=== PATIENT | male | born 1990 | race Caucasian/White ===

== ENCOUNTER 2018-10-11 16:50 | Observation (INO) ==
[2018-10-11] MEDS ORDERED: SODIUM CHLORIDE 0.9% 1000ML 1,000 ML IV ONE (17:16)
[2018-10-11] MEDS ORDERED: ONDANSETRON INJ 2 MG/ML 2 ML VIAL IV STA (17:16)
[2018-10-11] MEDS ORDERED: ACETAMINOPHEN 1,000 MG/100 ML VIAL IV STA (17:16)
[2018-10-11 18:21] LABS: Basophils # (auto) 0.02 K/uL (0-0.2); Basophils % (auto) 0.2 %; Eosinophils # (auto) 0.08 K/uL (0-0.5); Eosinophils % (auto) 0.9 %; Hematocrit (blood only) 43.4 % (42-52); Hemoglobin 15.8 g/dL (14.0-18.0); Immature Granulocytes # (auto) 0.01 K/uL (0.00-0.02); Immature Granulocytes % (auto) 0.1 %; Lymphocytes # (auto) 1.12 K/uL (1.2-3.4); Lymphocytes % (auto) 13.1 %; Mean Corpuscular Hemoglobin 29.6 pg (25-34); Mean Corpuscular Hgb Conc 36.4 g/dL (32-36); Mean Corpuscular Volume 81.3 fL (80-100); Mean Platelet Volume 9.4 fL (7.4-10.4); Monocytes # (auto) 0.49 K/uL (0.11-0.59); Monocytes % (auto) 5.7 %; Neutrophils # (auto) 6.85 K/uL (1.4-6.5); Platelet Count 191 K/uL (130-400); RDW Coefficient of Variation 12.6 % (11.5-14.5); RDW Standard Deviation 37.3 fL (36.4-46.3); Red Blood Count 5.34 M/uL (4.7-6.1); White Blood Count 8.57 K/uL (4.8-10.8)
[2018-10-11 18:38] LABS: Albumin Level 4.5 gm/dl (3.4-5.0); BUN Creatinine Ratio 8.1 (10-20); Calcium 9.7 mg/dl (8.5-10.1); Creatinine Clr Calc Pharmacy 94.5 ml/min; Est GFR (African American) 108.4; Est GFR (Non-African American) 93.6; Potassium 3.7 mmol/L (3.5-5.1)
[2018-10-11 18:41] LABS: Albumin Globulin Ratio 1.2 (0.9-2); Bilirubin,Total 0.7 mg/dl (0.2-1); Globulin 3.6 gm/dl (2.5-4.0); Total Protein 8.1 gm/dl (6.4-8.2)
[2018-10-11] MEDS ORDERED: IOVERSOL 100ml IV PRN (19:56)
[2018-10-11] MEDS ORDERED: cefOXitin 2,000 MG/60 ML BAG IV STA (20:08)
--- NOTE | 2018-10-11 20:08 | CT Scan Report ---
CT OF THE ABDOMEN AND PELVIS WITH CONTRAST CLINICAL HISTORY: RLQ pain, nausea COMPARISON STUDY: None. TECHNIQUE: Following IV administration of 94 mL of Optiray-320, axial images of the abdomen and pelvi s were obtained from the lung bases to the proximal femurs. Images were reviewed in the axial, sagitt al, and coronal planes. IV contrast was administered without complication. Automated exposure contro l was utilized for the study. A dose lowering technique was utilized adhering to the principles of A JOE. CT DOSE: 283.58 mGy.cm FINDINGS: Lung bases are clear. The liver, spleen, adrenal glands, kidneys and pancreas are normal. S ize of the spleen is at the upper limits of normal. There is no hydronephrosis. No biliary or pancrea tic ductal dilatation is noted. There is no peripancreatic or pericholecystic infiltration. No pneuma tosis, free air or portal venous gas is present. There is no evidence for a bowel obstruction. Note i s made of a 3 mm appendicolith within the mid appendix. The mid to distal appendix is slightly dilate d, measuring 8 mm in caliber. This portion of the appendix is fluid-filled. There is no significant p eriappendiceal infiltration. No free air or abscess is present. No lymphadenopathy is present. There are no suspicious osseous lesions. IMPRESSION: Mildly dilated fluid-filled appendix which contains a small appendicolith. No periappend iceal infiltration or abscess. These findings favor early acute appendicitis. Electronically signed by: Pranav Medina M.D. 10/11/2018 8:06 PM
[2018-10-11] MEDS ORDERED: SODIUM CHLORIDE 0.9% 1000ML 1,000 ML IV STA (20:13)
--- NOTE | 2018-10-11 20:30 | Emergency Department Note ---
Entered by Rebekah Mario acting as a scribe for Howie Escamilla MD History of Present Illness General Chief complaint: Illness Stated complaint: appendicitis Time Seen by Provider: 10/11/18 17:12 Source: patient History of Present Illness Onset (ago): day(s) 2 Location: abdomen (RLQ) Pain Consistency: + constant Maximum Pain Intensity: 3 Relieved By: + none Associated symptoms: + denies other symptoms (urinary symptoms, congestion) and + nausea/vomiting (yes nausea, no vomiting); no cough The patient is a 28 year old M who presents to the Emergency Room with complaints of constant RLQ abdominal pain that started 2 days ago. He notes that he was referred to the ED by [facility]. He states that he is currently experiencing nausea. He denies that he is currently experiencing urinary symptoms, vomiting, coughing, and congestion. He notes that he has been having regular bowel movements. 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 He adds that he is from [facility]. Home Medications Home Medications Medication Instructions Recorded Confirmed Type No Known Home Medications 10/11/18 10/11/18 History Allergies Allergy/AdvReac Type Severity Reaction Status Date / Time No Known Allergies Allergy Unverified 10/11/18 18:57 Past Med/Surg History Medical History No pertinent past medical history Surgical History No significant past surgical history Family History Other No significant family history Social History Feels Safe at Home: Yes Smoking Status: Never smoker Do You Dip or Chew Tobacco: No ; Hx Alcohol Use: Yes Hx Substance Use: No Review of Systems See HPI for pertinent positives & negatives. and A total of 10 systems reviewed and were otherwise negative Physical Exam Vital Signs Vital Signs - 24 hr 10/11/18 16:57 10/11/18 18:22 10/11/18 20:00 Temperature 37.1 C Temperature Source Oral Sepsis Recent Fever Within 48 Hours No Sepsis Action Taken by Nursing No Action Required Pulse Rate 88 Pulse Rate [Apical] Pulse Rate [Finger] 81 90 Pulse Rhythm [Apical] Respiratory Rate 16 16 12 Respiratory Effort / Characteristics Non-Labored Spontaneous Non-Labored Non-Labored Respiratory Depth Normal Normal Normal Respiratory Pattern Regular Regular Blood Pressure 144/86 H Blood Pressure [Left Arm] 128/71 139/85 Blood Pressure Mean 105 Blood Pressure Mean [Left Arm] 90 103 Blood Pressure Position Sitting Blood Pressure Position [Left Arm] Sitting Lying Pulse Oximetry 98 100 100 Oxygen Delivery Method Room Air Room Air Room Air Oxygen Flow Rate 10/11/18 20:57 10/11/18 22:00 10/11/18 23:31 Temperature 36.0 C L Temperature Source Temporal Artery Scan Sepsis Recent Fever Within 48 Hours Sepsis Action Taken by Nursing Pulse Rate 68 Pulse Rate [Apical] 118 H Pulse Rate [Finger] 65 Pulse Rhythm [Apical] Regular Respiratory Rate 18 20 18 Respiratory Effort / Characteristics Non-Labored Spontaneous Respiratory Depth Normal Respiratory Pattern Regular Blood Pressure Blood Pressure [Left Arm] 145/81 H 140/82 Blood Pressure Mean Blood Pressure Mean [Left Arm] 102 101 Blood Pressure Position Blood Pressure Position [Left Arm] Semi-fowlers Pulse Oximetry 98 99 100 Oxygen Delivery Method Room Air Room Air Oxymask Oxygen Flow Rate 10 10/11/18 23:40 10/11/18 23:50 Temperature Temperature Source Sepsis Recent Fever Within 48 Hours Sepsis Action Taken by Nursing Pulse Rate Pulse Rate [Apical] 83 61 Pulse Rate [Finger] Pulse Rhythm [Apical] Regular Regular Respiratory Rate 18 18 Respiratory Effort / Characteristics Non-Labored Spontaneous Non-Labored Spontaneous Respiratory Depth Normal Normal Respiratory Pattern Regular Regular Blood Pressure Blood Pressure [Left Arm] 125/79 128/73 Blood Pressure Mean Blood Pressure Mean [Left Arm] 94 91 Blood Pressure Position Blood Pressure Position [Left Arm] Semi-fowlers Semi-fowlers Pulse Oximetry 100 100 Oxygen Delivery Method Oxymask Oxymask Oxygen Flow Rate 5 3 GENERAL: Awake, alert, uncomfortable-appearing, in no distress HENT: Normocephalic, atraumatic. Oropharynx with dry mucous membranes and otherwise unremarkable. EYES: Normal conjunctiva. Sclera non-icteric. NECK: Supple. No nuchal rigidity. FROM. No JVD. RESPIRATORY: CTAB CARDIAC: RRR ABDOMEN: Soft, non-distended. Mild point tenderness to palpation over RLQ/Mcburney's point. No rebound or guarding. No masses. RECTAL: Deferred. MUSCULOSKELETAL: Chest examination reveals no tenderness. The back is symmetrical on inspection without obvious abnormality. There is no CVA tenderness to palpation. No joint edema. LOWER EXTREMITIES: Calves are equal size bilaterally and non-tender. No edema. No discoloration. NEURO: Normal sensorium. No sensory or motor deficits noted. SKIN: No rash or jaundice noted. Course 1713: The patient was evaluated in room C2A. A complete history and physical exam was performed. 2013: I reviewed the patient's case with Dr. Alejandre, [facility] [place]. He states that he will come in and evaluate the patient for likely surgery. Consultations Consultation #1: I reviewed the patient's case with Dr. Alejandre, [facility] [place]. He states that he will come in and evaluate the patient for likely surgery. Time: 20:13 Administered Medications Sodium Chloride (Nss 1000ml) 1,000 mls @ 125 mls/hr IV .Q8H STA Stop: 10/12/18 04:12 Last Admin: 10/11/18 20:53 Dose: 125 mls/hr Documented by: [id number] Ioversol (Optiray 320 100ml) 94 ml IV ONCE PRN PRN Reason: Interaction Checking Stop: 10/15/18 19:55 Last Admin: 10/11/18 19:56 Dose: 94 ml Documented by: [id number] Discontinued Medications Bupivacaine HCl/Epinephrine Bitart (Sensorcaine/Epinephrine 0.5% Mpf 1:200,000) Confirm Administered Dose 30 ml .ROUTE .STK-MED ONE Stop: 10/11/18 22:07 Last Admin: 10/11/18 22:58 Dose: 20 ml Documented by: [id number] Acetaminophen (Ofirmev) 1,000 mg in 100 mls @ 400 mls/hr IV NOW STA Stop: 10/11/18 17:30 Last Infusion: 10/11/18 18:31 Dose: 0 mls/hr Documented by: [id number] Admin: 10/11/18 18:16 Dose: 400 mls/hr Documented by: [id number] Sodium Chloride (Nss 1000ml) 1,000 mls @ 999 mls/hr IV .Q1H1M ONE Stop: 10/11/18 18:16 Last Infusion: 10/11/18 19:08 Dose: 0 mls/hr Documented by: [id number] Admin: 10/11/18 18:16 Dose: 999 mls/hr Documented by: [id number] Cefoxitin Sodium (Mefoxin) 2,000 mg in 60 mls @ 100 mls/hr IV NOW STA Stop: 10/11/18 20:43 Last Infusion: 10/11/18 21:30 Dose: 0 mls/hr Documented by: [id number] Admin: 10/11/18 20:53 Dose: 100 mls/hr Documented by: [id number] Ondansetron HCl (Zofran) 4 mg IV NOW STA Stop: 10/11/18 17:17 Last Admin: 10/11/18 18:16 Dose: 4 mg Documented by: [id number] Medical Decision Making Differential Diagnosis Differential diagnoses includes but is not limited to gastritis, peptic ulcer disease, GERD, gallbladder disease, pancreatitis, small bowel obstruction, acute coronary syndrome, pericarditis, ischemic bowel, irritable bowel disease, irritable bowel syndrome, appendicitis, diverticulitis, malignancy, hernia, urinary tract infection, torsion, perforation, trauma, infectious. Medical Records Attestation: I reviewed the patient's medical records. Home Medications Current Medication List: was personally reviewed by me Laboratory Data Attestation: I reviewed the patient's lab results. Result diagrams: 10/11/18 18:04 10/11/18 18:04 Lab Results 10/11/18 10/11/18 Range/Units 18:04 18:04 WBC 8.57 (4.8-10.8) K/uL RBC 5.34 (4.7-6.1) M/uL Hgb 15.8 (14.0-18.0) g/dL Hct 43.4 (42-52) % MCV 81.3 (80-100) fL MCH 29.6 (25-34) pg MCHC 36.4 H (32-36) g/dL RDW Std Deviation 37.3 (36.4-46.3) fL RDW Coeff of Darion 12.6 (11.5-14.5) % Plt Count 191 (130-400) K/uL MPV 9.4 (7.4-10.4) fL Immature Gran % (Auto) 0.1 % Neut % (Auto) 80.0 % Lymph % (Auto) 13.1 % [place] % (Auto) 5.7 % Eos % (Auto) 0.9 % Baso % (Auto) 0.2 % Immature Gran # (Auto) 0.01 (0.00-0.02) K/uL Neut # (Auto) 6.85 H (1.4-6.5) K/uL Lymph # (Auto) 1.12 L (1.2-3.4) K/uL [place] # (Auto) 0.49 (0.11-0.59) K/uL Eos # (Auto) 0.08 (0-0.5) K/uL Baso # (Auto) 0.02 (0-0.2) K/uL Sodium 139 (136-145) mmol/L Potassium 3.7 (3.5-5.1) mmol/L Chloride 104 (98-107) mmol/L Carbon Dioxide 31 (21-32) mmol/L Anion Gap 5.0 (3-11) BUN 9 (7-18) mg/dl Creatinine 1.08 (0.6-1.4) mg/dl Est Cr Clr Drug Dosing 94.5 ml/min Est GFR ( Amer) 108.4 Est GFR (Non-Af Amer) 93.6 BUN/Creatinine Ratio 8.1 L (10-20) Glucose 88 (70-99) mg/dl Calcium 9.7 (8.5-10.1) mg/dl Total Bilirubin 0.7 (0.2-1) mg/dl AST 22 (15-37) U/L ALT 26 (12-78) U/L Alkaline Phosphatase 79 (45-117) U/L Total Protein 8.1 (6.4-8.2) gm/dl Albumin 4.5 (3.4-5.0) gm/dl Globulin 3.6 (2.5-4.0) gm/dl Albumin/Globulin Ratio 1.2 (0.9-2) Lipase 158 (73-393) U/L Imaging Data Radiologist's Impression: Radiology results as stated below per my review and the radiologist's interpretation: CT OF THE ABDOMEN AND PELVIS WITH CONTRAST CLINICAL HISTORY: RLQ pain, nausea COMPARISON STUDY: None. TECHNIQUE: Following IV administration of 94 mL of Optiray-320, axial images of the abdomen and pelvis were obtained from the lung bases to the proximal femurs. Images were reviewed in the axial, sagittal, and coronal planes. IV contrast was administered without complication. Automated exposure control was utilized for the study. A dose lowering technique was utilized adhering to the principles of ALARA. CT DOSE: 283.58 mGy.cm FINDINGS: Lung bases are clear. The liver, spleen, adrenal glands, kidneys and pancreas are normal. Size of the spleen is at the upper limits of normal. There is no hydronephrosis. No biliary or pancreatic ductal dilatation is noted. There is no peripancreatic or pericholecystic infiltration. No pneumatosis, free air or portal venous gas is present. There is no evidence for a bowel obstruction. Note is made of a 3 mm appendicolith within the mid appendix. The mid to distal appendix is slightly dilated, measuring 8 mm in caliber. This portion of the appendix is fluid-filled. There is no significant periappendiceal infiltration. No free air or abscess is present. No lymphadenopathy is present. There are no suspicious osseous lesions. IMPRESSION: Mildly dilated fluid-filled appendix which contains a small appendicolith. No periappendiceal infiltration or abscess. These findings favor early acute appendicitis. Electronically signed by: Parnav Medina M.D. 10/11/2018 8:06 PM Blood Pressure Blood Pressure Findings: Normal blood pressure Blood Pressure Disposition: did not require urgent referral MDM Narrative The patient is a pleasant 28-year-old gentleman previously healthy, from [place], who is here as a freshman student at [employer] who presents emergency department with right lower quadrant pain with nausea and decreased appetite that began yesterday seen at [facility] and referred to the ED for possible appendicitis per hpi. On arrival the patient is in no acute distress, afebrile stable vital signs. On exam the patient exhibits point tenderness over McBurney's point without guarding or rebound. WBC, H/H, platelets wnl. Chemistry without acidosis. LFTs and electrolytes unremarkable. UA negative. CT abdomen pelvis however demonstrates findings consistent with likely early appendicitis with 3 mm appendicolith within the mid appendix, with mid to distal appendix sl ightly dilated, measuring 8 mm in caliber and is fluid-filled. There is no periappendiceal infiltration at this time. The patient was reevaluated and continues to have point tenderness over McBurney's point. He remains hemodynamically stable. Patient was ordered for cefoxitin. Case was discussed with general surgery, Dr. Alejandre, who evaluate the patient for likely admission to OR. Patient updated on plan and agreeable. Impression & Plan Appendicitis, Abdominal pain Discharge Plan Visit Data *Final* Discharge Date/Time: 10/11/18 22:00 Chief Complaint: Illness Stated Complaint: appendicitis ED Provider: Howie Escamilla Discharge Problem: Appendicitis, Abdominal pain Patient Disposition: Still a Patient Discharge Instructions Interventions: ED Discharge Assessment Last Done: 10/11/18 22:00 Discharge Problem: Appendicitis Qualifiers: Appendicitis type: unspecified Qualified Code(s): K37 - Unspecified appen dicitis Abdominal pain Qualifiers: Abdominal location: right lower quadrant Qualified Code(s): R10.31 - Right l ower quadrant pain The scribe's documentation has been prepared under my direction and personally reviewed by me in its entirety. I confirm that the note above accurately reflects all work, treatment, procedures, and medical decision making performed by me.
--- NOTE | 2018-10-11 21:31 | History & Physical Report ---
Date of Service October 11, 2018 Assessment & Plan (1) Appendicitis: IVF IV abx to OR for lap appendectomy Appendicitis type: unspecified Qualified Code(s): K37 - Unspecified appendicitis Present on Admission?: Yes History of Present Illness Primary Care Provider: [facility] This is a 28 year old male who presents to the Emergency Room with complaints of constant RLQ abdominal pain that started 2 days ago. He states that he has nausea without vomiting. He denies urinary symptoms, fevers, or chills. A CT scan shows early acute appendicitis with an fecalith. Allergies Allergy/AdvReac Type Severity Reaction Status Date / Time No Known Allergies Allergy Unverified 10/11/18 18:57 Home Medications Home Medications Medication Instructions Recorded Confirmed Type No Known Home Medications 10/11/18 10/11/18 History Past Med/Surg History Medical History No pertinent past medical history Family History Other No significant family history Social History Feels Safe at Home: Yes Smoking Status: Never smoker Review of Systems + anorexia; no fever and no chills no problem reported no problem reported no cough, no chest congestion and no dyspnea no chest pain and no dyspnea + abdominal pain and + nausea; no vomiting and no change in bowel habits no dysuria no back pain, no neck pain and no joint pain no rash no problem reported no depression no fatigue no problem reported no problem reported Physical Exam Constitutional: well developed and well nourished Eyes: PERRL; no scleral abnormality ENMT: external ear and nose normal, oropharynx normal Neck: trachea midline, no thyromegaly neck nontender Thyroid: + thyroid tender Respiratory: normal respiratory effort, lungs clear to auscultation Cardiovascular: RRR, no murmur, no edema Gastrointestinal (Abdomen): Inspection/Auscultation: abdomen normal to inspection and normal bowel sounds; abdomen not distended Percussion/Palpation: + abdomen tender, + guarding and abdomen soft Musculoskeletal: Head/Neck/Chest: normocephalic and head atraumatic Skin: no rashes, warm and dry Psychiatric: A+Ox3, euthymic affect Lymphatic: no lymphadenopathy ASA Classification ASA ASA1E Results & Data Vital Signs (Past 12 Hours) Vital Signs Temp Pulse Pulse Resp BP BP Pulse Ox 10/11/18 20:57 65 18 145/81 H 98 10/11/18 20:00 90 12 139/85 100 10/11/18 18:22 81 16 128/71 100 10/11/18 16:57 37.1 C 88 16 144/[address] OF THE ABDOMEN AND PELVIS WITH CONTRAST CLINICAL HISTORY: RLQ pain, nausea COMPARISON STUDY: None. TECHNIQUE: Following IV administration of 94 mL of Optiray-320, axial images of the abdomen and pelvis were obtained from the lung bases to the proximal femurs. Images were reviewed in the axial, sagittal, and coronal planes. IV contrast was administered without complication. Automated exposure control was utilized for the study. A dose lowering technique was utilized adhering to the principles of ALARA. CT DOSE: 283.58 mGy.cm FINDINGS: Lung bases are clear. The liver, spleen, adrenal glands, kidneys and pancreas are normal. Size of the spleen is at the upper limits of normal. There is no hydronephrosis. No biliary or pancreatic ductal dilatation is noted. There is no peripancreatic or pericholecystic infiltration. No pneumatosis, free air or portal venous gas is present. There is no evidence for a bowel obstruction. Note is made of a 3 mm appendicolith within the mid appendix. The mid to distal appendix is slightly dilated, measuring 8 mm in caliber. This portion of the appendix is fluid-filled. There is no significant periappendiceal infiltration. No free air or abscess is present. No lymphadenopathy is present. There are no suspicious osseous lesions. IMPRESSION: Mildly dilated fluid-filled appendix which contains a small appendicolith. No periappendiceal infiltration or abscess. These findings favor early acute appendicitis.
[2018-10-11] MEDS ORDERED: cefOXitin 1,000 MG/50 ML BAG IV ONE (21:33)
[2018-10-11] MEDS ORDERED: ONDANSETRON INJ 2 MG/ML 2 ML VIAL ONE (22:00)
[2018-10-11] MEDS ORDERED: PROPOFOL IV EMULSION 10 MG/ML 20 ML VIAL IV ONE (22:00)
[2018-10-11] MEDS ORDERED: ROCURONIUM BROMIDE 10 MG/ML 5 ML VIAL ONE (22:00)
[2018-10-11] MEDS ORDERED: DEXAMETHASONE SOD INJ 4 MG/ML VIAL ONE (22:00)
[2018-10-11] MEDS ORDERED: fentaNYL citrate 100 MCG/2 ML VIAL ONE ×2 (22:00→22:44)
[2018-10-11] MEDS ORDERED: LIDOCAINE HCL 2% 2 ML VIAL/AMP(20MG/ML) INFIL ONE (22:00)
[2018-10-11] MEDS ORDERED: SUCCINYLCHOLINE CHLORIDE 20 MG/ML 10 ML VIAL ONE (22:00)
[2018-10-11] MEDS ORDERED: MIDAZOLAM HCL 1 MG/ML 2ML VIAL ONE (22:00)
[2018-10-11] MEDS ORDERED: BUPIVACAINE/EPINEPHRINE 0.5% MPF 1:200,000 30 ML VIAL ONE (22:06)
--- NOTE | 2018-10-11 22:21 | Anesthesiology Consultation ---
Date of Service October 11, 2018 Assessment & Plan (1) Encounter for pre-operative examination: Chart Review Chart Review: Acceptable Risk for Surgery and Patient NOT seen in Pre Admission Testing Consults Requested none ASA ASA2E Proposed Anesthesia Anesthesia Type: General Risk / Benefits Reviewed With: PT / POA / Parent / Guardian, Accepts Plan and Informed Consent Obtained History Surgery Operation Date: 10/11/18 23:00 Proposed Procedures p Laparoscopic Appendectomy(Not Applicable) - Tomy Alejandre MD Height/Weight Height: 5 ft 7 in Weight: 65 kg Allergies Allergy/AdvReac Type Severity Reaction Status Date / Time No Known Allergies Allergy Unverified 10/11/18 18:57 Medications Home Medications Medication Instructions Recorded Confirmed Last Taken No Known Home Medications 10/11/18 10/11/18 Unknown Active Medications Generic Name Dose Route Start Last Admin Trade Name Freq PRN Reason Stop Dose Admin Sodium Chloride 1,000 mls @ 125 mls/hr 10/11/18 20:13 10/11/18 20:53 Nss 1000ml IV 10/12/18 04:12 125 mls/hr .Q8H STA Administration Ioversol 94 ml 10/11/18 19:56 10/11/18 19:56 Optiray 320 100ml IV 10/15/18 19:55 94 ml ONCE PRN Administration Interaction Checking NPO Date Last Intake of Fluids: 10/11/18 Time Last Intake of Fluids: 14:00 Date Last Intake of Solids: 10/11/18 Time Last Intake of Solids: 14:00 Past Medical History Medical History No pertinent past medical history Exercise / Class Metabolic Activity II 4-5 Yardwork/Stairs/Walk up hill Past Family History Family History Other No significant family history Past Surgical History Surgical History No significant past surgical history Past Anesthesia History No Family Hx of Anesthesia Complications History of PONV No Hx of Motion Sickness Social History Smoking Status: Never smoker Do You Dip or Chew Tobacco: No Hx Alcohol Use: Yes alcohol intake frequency: a few times a week Hx Substance Use: No Review of Systems Positive for nausea today - no vomiting Patient denies active symptoms of GERD. Negative for chest pain or shortness of breath. Physical Exam Vital Signs Last Vital Signs Temp 37.1 C 10/11/18 16:57 Pulse 65 10/11/18 20:57 Resp 18 10/11/18 20:57 BP 145/81 H 10/11/18 20:57 Pulse Ox 98 10/11/18 20:57 Constitutional not obese ENMT Mouth: no TMJ abnormality and oral opening not small Thyromental Distance: > or= 3.5 Finger Breadths Mallampati Class: II Neck normal visual inspection and + facial hair; neck extension not limited Respiratory normal respiratory effort Auscultation: lungs clear to auscultation bilaterally Cardiovascular Rate/Rhythm: regular rate and regular rhythm Heart Sounds: no murmur Neurologic moves all extremities Psychiatric Orientation: alert and oriented x 3 Testing Laboratory Results 10/11/18 18:04 10/11/18 18:04
[2018-10-11] MEDS ORDERED: GLYCOPYRROLATE 0.2 MG/ML VIAL ONE (22:57)
[2018-10-11] MEDS ORDERED: NEOSTIGMINE METHYLSULFATE 5 MG/5 ML SYR ONE (22:58)
--- NOTE | 2018-10-11 23:02 | Post Operative Brief Note ---
Immediate Post Op Note v1 Date of Surgery October 11, 2018 Pre & Post Diagnosis Operation Date: 10/11/18 23:00 Pre-Op Diagnosis: Acute appendicitis Post-Op Diagnosis: Acute appendicitis Procedure Operation Date: 10/11/18 23:00 Actual Procedures p Laparoscopic Appendectomy(Not Applicable) - Tomy Alejandre MD Surgeon Tomy Alejandre MD Drug Regulatory Affairs Specialist none Estimated Blood Loss 2 Findings Consistent with Post-Op Diagnosis
[2018-10-11] MEDS ORDERED: MoRPHine SULFATE 4 MG/ML 1 ML CARP\\VIAL IV PRN (23:06)
[2018-10-11] MEDS ORDERED: IBUPROFEN 200 MG TAB PO PRN (23:06)
[2018-10-11] MEDS ORDERED: ACETAMINOPHEN 325 MG TAB PO PRN (23:06)
[2018-10-11] MEDS ORDERED: MoRPHine SULFATE 10 MG/ML CARP/VIAL IV PRN (23:06)
[2018-10-11] MEDS ORDERED: ONDANSETRON INJ 2 MG/ML 2 ML VIAL IV PRN ×2 (23:06→23:49)
[2018-10-11] MEDS ORDERED: PROMETHAZINE HCL 25 MG in SODIUM CHLORIDE 0.9% 50 ML IV PRN (23:06)
[2018-10-11] MEDS ORDERED: OXYCODONE/ACETAMINOPHEN 5mg/325mg TAB PO PRN ×2 (23:06)
[2018-10-11] MEDS ORDERED: MoRPHine SULFATE 2 MG/ML CARP IV PRN (23:06)
[2018-10-11] MEDS ORDERED: SUGAMMADEX SODIUM 200 MG/2 ML VIAL IV ONE (23:07)
[2018-10-11] MEDS ORDERED: fentaNYL citrate 100 MCG/2 ML VIAL IV PRN (23:49)
[2018-10-11] MEDS ORDERED: ePHEDrine sulfate 50 MG/ML AMP IV PRN (23:49)
[2018-10-11] MEDS ORDERED: PROMETHAZINE HCL 12.5 MG in SODIUM CHLORIDE 0.9% 50 ML IV PRN (23:49)
[2018-10-11] MEDS ORDERED: HYDROmorphone INJ 1 MG/ML SYRINGE IV PRN (23:49)
[2018-10-11] MEDS ORDERED: ATROPINE SULFATE 0.1 MG/ML 10ML SYR IV PRN (23:49)
--- NOTE | 2018-10-12 00:14 | Anesthesiology Progress Note ---
Date of Service October 12, 2018 Anesthesia Post Procedure Vital Signs Vital Signs: Temp Pulse Pulse Pulse Resp BP BP 10/12/18 00:00 36.4 C L 61 18 118/68 10/11/18 23:50 61 18 128/73 10/11/18 23:40 83 18 125/79 10/11/18 23:31 36.0 C L 118 H 18 140/82 10/11/18 22:00 68 20 10/11/18 20:57 65 18 145/81 H 10/11/18 20:00 90 12 139/85 10/11/18 18:22 81 16 128/71 10/11/18 16:57 37.1 C 88 16 144/86 H Pulse Ox 10/12/18 00:00 100 10/11/18 23:50 100 10/11/18 23:40 100 10/11/18 23:31 100 10/11/18 22:00 99 10/11/18 20:57 98 10/11/18 20:00 100 10/11/18 18:22 100 10/11/18 16:57 98 Pain Intensity Right Lower Abdomen: Pain Intensity: 5 Transfer of Care Handoff Completed per policy Notes Mental Status: alert / awake / arousable and participated in evaluation Patient Amnestic to Procedure: Yes Nausea / Vomiting: adequately controlled Pain: adequately controlled Airway Patency, RR, SpO2: stable & adequate BP & HR: stable & adequate Hydration State: stable & adequate Anesthetic Complications: no major complications apparent and Pt Satisfied with anesthetic care
--- NOTE | 2018-10-12 00:21 | Operative Report ---
DATE OF OPERATION: 10/11/2018 PREOPERATIVE DIAGNOSIS: Acute appendicitis. POSTOPERATIVE DIAGNOSIS: Acute appendicitis. PROCEDURE PERFORMED: Laparoscopic appendectomy. SURGEON: Tomy Alejandre MD THERMOMETER PRODUCTION WORKER: None. ANESTHESIA: General endotracheal with 0.5% Marcaine with epinephrine local. ESTIMATED BLOOD LOSS: 2 mL. DRAINS: None. SPECIMENS: Appendix sent to pathology. FINDINGS: Acutely inflamed early appendicitis. INDICATION FOR PROCEDURE: This is a 28-year-old male who came in with a day plus history of some abdominal pain. He had evaluation as an outpatient, was sent to the Emergency Department where they ordered a CT scan which showed some early appendiceal changes and dilatation along with a fecalith. He had peritoneal signs on examination. We will plan to take him to the Operating Room for laparoscopic appendectomy. He understands the risk of an open procedure, abscess, reoperation, bleeding and wound problems. DESCRIPTION OF PROCEDURE: The patient was taken to the Operating Room and underwent excellent general endotracheal anesthesia. His abdomen was prepped and draped in normal sterile fashion. A transverse supraumbilical incision was made and a Veress needle was inserted with upward tension on the abdominal wall. Good pneumoperitoneum was achieved to 15 mmHg. A visualized 11 trocar was then placed. A 12 was placed in the left lower quadrant and 5 was placed in the suprapubic and right upper quadrant. He was placed in head down and rolled to the left. Brandi was used to grasp the cecum and the tip of the appendix was grasped with a grasper. This displayed the appendix, which showed some acute inflammatory changes distally with a fairly normal proximal appendix. Harmonic scalpel was used to take down the mesoappendix to the base. The base was then transected with a MAT-45 vascular load stapler. The appendix was brought out with an Endobag through the left lower quadrant incision. The port was replaced and pneumoperitoneum was reestablished. Staple line appeared intact. There was no bleeding. The abdomen was then irrigated out and suctioned clear. No other abnormalities were noted. The ports were removed. Pneumoperitoneum was decompressed. Fascia was closed with 0 Vicryls. The skin was closed with interrupted Vicryls. Steri-Strips and benzoin were used for this incision. Sterile dressings were applied. The patient tolerated the procedure well with no complications, sent to post-recovery for a period of observation and then be discharged to his room when he meets criteria. I attest to the content of the Intraoperative Record and any orders documented therein. Any exception s are noted below.
[2018-10-12] MEDS: LACTATED RINGER'S 1,000 ML IV SCH ×2 (00:50→05:35)
[2018-10-12] MEDS ORDERED: cefOXitin 2,000 MG in DEXTROSE 5% 50 ML IV SCH (04:00)
[2018-10-12 08:15] VITALS: BP 112/61; TEMP 98.1; O2SAT 98
--- NOTE | 2018-10-12 09:03 | Surgery Progress Note ---
Date of Service October 12, 2018 Assessment & Plan (1) Appendicitis: doing well dischgarge to home Present on Admission?: Yes Subjective Doing well taking po Review of Systems Constitutional: no fever and no chills Respiratory: no cough and no dyspnea Cardiovascular: no chest pain Gastrointestinal: + abdominal pain; no nausea and no vomiting Musculoskeletal: no back pain Integumentary: no rash Neurologic: + generalized weakness Physical Exam Constitutional: well developed and well nourished Neck: trachea midline, no thyromegaly Respiratory: normal respiratory effort, lungs clear to auscultation Cardiovascular: RRR, no murmur, no edema Gastrointestinal (Abdomen): Inspection/Auscultation: abdomen normal to inspection; abdomen not distended Percussion/Palpation: + abdomen tender dressing with some drainage Musculoskeletal: Head/Neck/Chest: normocephalic and head atraumatic Skin: no rashes, warm and dry Results & Data Vital Signs (Past 12 Hours) Vital Signs Temp Pulse Pulse Pulse Resp BP Pulse Ox 10/12/18 08:00 36.7 C 69 18 112/61 98 10/12/18 03:15 36.5 C 52 L 14 107/57 L 97 10/12/18 02:20 36.5 C 57 L 14 109/58 L 96 10/12/18 01:20 36.7 C 64 16 118/65 97 10/12/18 00:57 36.4 C L 61 15 122/77 97 10/12/18 00:20 36.4 C L 74 16 116/74 97 10/12/18 00:00 36.4 C L 61 18 118/68 100 10/11/18 23:50 61 18 128/73 100 10/11/18 23:40 83 18 125/79 100 10/11/18 23:31 36.0 C L 118 H 18 140/82 100 10/11/18 22:00 68 20 99 (1) Appendicitis Appendicitis type: unspecified Qualified Code(s): K37 - Unspecified appendicitis
[2018-10-12 10:33] VITALS: PULSE 52
--- NOTE | 2018-10-15 12:56 | Discharge Summary ---
Date of Service October 15, 2018 Admission HPI Per Admitting Provider This is a 28 year old male who presents to the Emergency Room with complaints of constant RLQ abdominal pain that started 2 days ago. He states that he has nausea without vomiting. He denies urinary symptoms, fevers, or chills. A CT scan shows early acute appendicitis with an fecalith. Principal Diagnosis acute appendicitis with fecolith Discharge Data Allergies Allergy/AdvReac Type Severity Reaction Status Date / Time No Known Allergies Allergy Unverified 10/11/18 18:57 Consultations 10/11/18 20:13 ED Decision to Admit Stat Procedures Performed Operation Date: 10/11/18 23:00 Actual Procedures p Laparoscopic Appendectomy(Not Applicable) - Tomy Alejandre MD Ordered Studies 10/11/18 17:16 CT abd pelvis IV con only Stat Hospital Course (1) Appendicitis: Patient was taken to operating room for laparoscopic appendectomy possible open by Dr. Alejandre. Patient found to have early acute appendicitis without perforation or abscess. Patient tolerated procedure well without any difficulties. Was transferred to recovery and then to medical/surgical floor for post operative care. He was continued on IV fluids, PO Percocet with breakthrough IV morphine as needed for pain, IV Zofran prn nausea, activity as tolerated, SCDs for DVT prophylaxis, and clear liquid diet. POD # 1, vitals stable, pain controlled, tolerating clear liquids. Diet was advanced to regular diet and patient tolerated well. He was discharged home on POD # 1 in stable condition. Total Time Total Time Spent Total Time Spent (In Minutes): 20 Total Time Includes: Examination of the Patient, Discharge Planning and Medication Reconciliation Discharge Plan Discharge Items Patient Disposition: Home - Self-Care Reason For Visit: appendicitis Discharge Diagnosis: appendicitis Condition: Good Discharge Goals: Improve function Activity: Per 'Additional Instructions' section Lifting: No more than 25 pounds Bathing Comment: may shower tomorrow morning; avoid baths Sexual Activity: After one week Exercise/Sports: Wait until after follow-up appointment Driving/Machine Use: Resume 1 day after discharge Weightbearing: Full weightbearing Non-emergency contact: Primary Care Provider and Surgeon Call non-emergency contact if: your pain is not controlled, your pain is worsening, your temperature is above 101.5, your wound has increased redness and your wound pain has increased Follow-up/Referrals: Tomy Alejandre MD [Physician] - (Call [phone] on Sunday to make a follow- up appointment for SundayOctober 21) [facility] [Primary Care Provider] - Diet: Regular Addtl Provider Instructions: none Prescriptions: New oxycodone-acetaminophen [Percocet] 5-325 mg Tablet 1 tab PO Q4H PRN (Reason: pain) Qty: 14 RF: 0 No Action No Known Home Medications RF: 0 Stand-Alone Forms: [facility], [facility], Work/School Release (Inpt) Discharge Orders: Discharge Order (Routine); Ordered 10/12/18 Ordered By: Tomy Alejandre Admission Data Admit Date/Time: 10/11/18 23:06 Attending Provider: Tomy Alejandre Admit Provider: Tomy Alejandre Primary Care Provider: [facility] Other Providers: Tomy Alejandre Service: Surgical Services Other Interventions: Discharge Summary Assessment (RN) Last Done: 10/12/18 10:31 Pending Studies at Discharge: No DC Date/Time DO NOT enter until pt leaves facility: 10/12/18 11:55
== END 2018-10-12 11:55 | disposition home or self-care (01) ==
LOC: ED 16:50 → ASU 22:00 → 3W 22:00
DX: K35.80 Unspecified acute appendicitis